=== PATIENT | male | born 2000 | race Caucasian/White ===

== ENCOUNTER → 2018-04-14 | Outpatient (CLI) | payer BC ==
--- NOTE | ~2018-04-14 | MCT ---
Formerly [facility] [place] [address] METHACHOLINE CHALLENGE TEST Name: IGNACIO ROACH Room #: SANDY Pace#: [id number] Admission: 04/14/18 Attend Phys: Kings Calvert MD Discharge: Date of : 89 Report #: [id number] THIS REPORT FOR: //name// COPIES FOR: AGE: 17 SEX/RACE: M/C Height: 72 in Exam Date: 04/14/18 Weight: 135 lbs BTPS: X >> PRE BRONCHODILATOR: PREDICTED BEST %PRED FORCED VITAL CAPACITY (FRC) 5.31 L 4.44 LPM 84 % FORCED EXP VOL/SEC (FEV1) 4.59 L 3.50 FEV/FVC 76 % MAX MID-EXP FLOW (FEF 25-75) 5.09 L/SEC 2.92 L/SEC 57 % PEAK EXP FLOW RATE (FEF MAX) 9.35 L/MIN 7.20 L/MIN MED-VC RATIO (FEF 50/FEF 50) .09 77 Baseline: Phenol Saline Level 1: 0.025 mg/ml BEST %PRED %CHANGE BEST %PRED %CHANGE FVC 4.67 L 88 % 5 % FVC 4.46 L 84 % -4 % FEV1 3.61 L 79 % 3 % FEV1 3.54 L 77 % -2 % Level 2: 0.25 mg/ml Level 3: 2.5 mg/ml BEST %PRED %CHANGE BEST %PRED %CHANGE FVC 4.59 L 86 % -2 % FVC 4.60 L 87 % -1 % FEV1 3.54 L 77 % -2 % FEV1 3.27 L 71 % -10 % . Level 4: 10 mg/ml Level 5: 25 mg/ml BEST %PRED %CHANGE BEST %PRED %CHANGE FVC 4.56 L 86 % -2 % FVC 4.32 L 81 % -8 % FEV1 3.40 L 74 % -6 % FEV1 2.94 L 64 % -19 % Post Bronchodilator: 1st Treatment Post Bronchodilator: 2nd Treatment BEST %PRED %CHANGE BEST %PRED %CHANGE FVC 4.44 L 84 % -5 % FVC L % % FEV1 3.54 L 77 % -2 % FEV1 L % % Post Bronchodilator: 3rd Treatment BEST %PRED %CHANGE Formerly [facility] [address] [place] [address] METHACHOLINE CHALLENGE TEST Name: IGNACIO ROACH Room #: REG [facility] Shaneka.#: [id number] Admission: 04/14/18 Attend Phys: Kings Calvert MD Discharge: Date of : 89 Report #: [id number] FVC L % % FEV1 L % % >> INTERPRETATION: CC: Maryanne Calvert MD TYPE OF REPORT: Methacholine challenge test. Pre-MCT spirometry was normal. The patient underwent a methacholine challenge test. He received up to level 5 concentration of methacholine. At level 5, the patient exhibited -19 percent decrement in the FEV1. Spirometry, post-MCT testing showed flows returning near baseline. IMPRESSION: Although the FEV1 showed only 19% decrement, this is felt to be a positive methacholine challenge test. Clinical correlation is recommended. <ELECTRONICALLY SIGNED> By: Bg Connolly MD 04/27/18 1542 Bg Connolly MD /nt
== END ==
LOC: PUL 10:28
DX: R06.00 Dyspnea, unspecified (principal)

== ENCOUNTER → 2020-04-09 | Outpatient (CLI) | payer OTHER | LOC: RAD 11:17 | PROVIDERS: ATTEND Pediatrics | DX: R05 Cough (principal) ==